=== PATIENT | male | born 1960 | race Caucasian/White ===

== ENCOUNTER 2016-09-05 22:30 | Emergency (ER) | payer MEDICAID ==
[~2016-09-05] VITALS: Ht 170.2 cm; Wt 91.9 kg
[~2016-09-05 22:30] MED LIST: B/P MED; HYDR25TA6 PO; LORA-446 PO; SERT100T PO
[2016-09-05 23:26] LABS: BLOOD UREA NITROGEN 8 mg/dL (7-18)
[2016-09-05 23:31] LABS: ACETAMINOPHEN < 2 mcg/mL (10-30)
[2016-09-06 00:06] LABS: DAU SCREEN DISCLAIMER
[2016-09-06] MEDS ORDERED: LORazepam 0.5MG TABLET ONE (04:10)
[2016-09-06 04:14] VITALS: BP 151/95
[2016-09-06] MEDS ORDERED: LORazepam 0.5MG TABLET PO ONE (04:30)
== END 2016-09-06 04:16 | disposition home or self-care (01) ==
LOC: ED 23:15
DX: F41.1 Generalized anxiety disorder (principal); F10.220 Alcohol dependence with intoxication, uncomplicated; F32.9 Major depressive disorder, single episode, unspecified; I10 Essential (primary) hypertension; E78.5 Hyperlipidemia, unspecified; Z72.9 Problem related to lifestyle, unspecified
CPT/HCPCS: 36415; 80048; 80307; 80329; 82040; 85025; 99284; G0480

== ENCOUNTER 2016-11-17 19:12 | Emergency (ER) | payer MEDICAID ==
[~2016-11-17] VITALS: Ht 170.2 cm; Wt 89.6 kg
[2016-11-17 19:18] VITALS: BP 180/81
[2016-11-17] MEDS ORDERED: SODIUM CHLORIDE 0.9% 1,000ML IVBOLUS ONE (20:00)
[2016-11-17] MEDS ORDERED: ONDANSETRON ODT 4 MG PO ONE (20:00)
[2016-11-17] MEDS ORDERED: SODIUM CHLORIDE FLUSH 10ML SYR IVF ONE (20:00)
[2016-11-17] MEDS ORDERED: THIAMINE 100MG TABLET PO ONE (20:00)
[2016-11-17] MEDS ORDERED: ONDANSETRON 2MG/ML, 2ML ONE (20:04)
[2016-11-17] MEDS ORDERED: LORazepam 2 MG/ML, 1ML ONE (20:04)
[2016-11-17 20:21] LABS: HEMATOCRIT 46.7 % (39.2-51.8); HEMOGLOBIN 16.3 g/dL (13.7-18.0); WHITE BLOOD COUNT 5.8 x10^3/uL (3.4-10)
[2016-11-17 20:29] LABS: ASPARTATE AMINO TRANSFERASE 45 U/L (15-37); BLOOD UREA NITROGEN 16 mg/dL (7-18)
[2016-11-17] MEDS: LORazepam 2 MG/ML, 1ML IVPush PRN ×2 (20:30→21:05)
[2016-11-17] MEDS ORDERED: THIAMINE 100MG TABLET ONE (21:02)
== END 2016-11-17 22:38 | disposition home or self-care (01) ==
LOC: ED 21:09
DX: F10.232 Alcohol dependence with withdrawal with perceptual disturbance (principal); E78.5 Hyperlipidemia, unspecified; F10.239 Alcohol dependence with withdrawal, unspecified; I10 Essential (primary) hypertension
CPT/HCPCS: 36415; 80053; 80307; 83690; 85025; 93005; 96361; 96374; 96376; 99285; J2060; J7030; Q0162; G0479

== ENCOUNTER 2018-06-19 16:24 | Emergency (ER) | payer MEDICAID ==
[~2018-06-19] VITALS: Ht 167.6 cm; Wt 95.9 kg
--- NOTE | 2018-06-19 16:35 | NUR ---
PT TO ROOM AT THIS TIME
--- NOTE | 2018-06-19 16:43 | NUR ---
58 Y/O MALE PRESENTS TO ED WITH C/O ANX/DEP. PER PT "I HAVE DEPRESSION AND ANXIETY. I HAVEN'T TAKEN MY MEDS IN 6 MONTHS. I DON'T HAVE A DR. RIGHT NOW. I'VE THOUGHT ABOUT HURTING MYSELF, NOT RIGHT NOW. I DON'T WANT TO HURT ANYONE ELSE. I HAVE A HEADACHE NOW." NO ACUTE DISTRESS NOTED. PT CALM.
[2018-06-19] MEDS ORDERED: LORazepam 1MG TABLET ONE (17:19)
[2018-06-19 17:20] VITALS: BP 134/70
--- NOTE | 2018-06-19 17:22 | NUR ---
PT RESTING ON GURNEY. NO ACUTE DISTRESS NOTED. VSS. NO NEEDS REQUESTED AT THIS TIME. MEDICATION ADMINISTERED PER EMAR.
[2018-06-19] MEDS ORDERED: LORazepam 1MG TABLET PO ONE (17:30)
--- NOTE | 2018-06-19 18:25 | NUR ---
Patient/Caregiver given discharge instructions and they have confirmed that they understand the instructions. Patient ambulatory with steady gait. PT LEFT WITH ALL PERSONAL BELONGINGS.
== END 2018-06-19 18:27 | disposition home or self-care (01) ==
LOC: ED 18:13
DX: F41.1 Generalized anxiety disorder (principal); I10 Essential (primary) hypertension; E78.5 Hyperlipidemia, unspecified
CPT/HCPCS: 99283

== ENCOUNTER 2020-01-12 15:19 | Emergency (ER) | payer MEDICAID, OTHER ==
[~2020-01-12] VITALS: Ht 167.6 cm; Wt 91.8 kg
[2020-01-12] MEDS ORDERED: ACETAMINOPHEN 500 MG TABLET PO ONE (15:30)
[2020-01-12] MEDS ORDERED: ACETAMINOPHEN 500 MG TABLET ONE (15:31)
--- NOTE | 2020-01-12 15:34 | NUR ---
medicated with 1gm of apap after clarification with provider as patient took 324 of asa at 1pm
[2020-01-12 16:10] LABS: BASOPHILS % (AUTO) 1 % (0-1); EOSINOPHILS % (AUTO) 0 % (1-7); LYMPHOCYTES % (AUTO) 25 % (22-44); MEAN CORPUSCULAR HEMOGLOBIN 31.7 pg (27.5-34.5); MEAN CORPUSCULAR HGB CONC 34.3 g/dL (33.2-36.2); MEAN PLATELET VOLUME 8.9 fL (7.4-10.4); MONOCYTES % (AUTO) 19 % (2-9); NEUTROPHILS % (AUTO) 56 % (42-75); PLATELET COUNT 189 x10^3/uL (130-400); RED BLOOD COUNT 4.98 x10^6/uL (4.38-5.82); RED CELL DISTRIBUTION WIDTH 12.6 % (9.4-14.8)
[2020-01-12 16:12] LABS: MD NO
[2020-01-12 16:23] LABS: ALANINE AMINOTRANSFERASE 37 U/L (12-78); ALBUMIN 4.2 g/dL (3.4-5.0); ANION GAP 7 mmol/L (5-15); CALCIUM 9.7 mg/dL (8.5-10.1); CHLORIDE 103 mmol/L (98-107); CREATININE 1.36 mg/dL (0.7-1.3)
[2020-01-12 16:25] LABS: ALKALINE PHOSPHATASE 74 U/L (45-117); BILIRUBIN,TOTAL 0.3 mg/dL (0.2-1.0); TOTAL PROTEIN 8.6 g/dL (6.4-8.2)
[2020-01-12 20:11] VITALS: BP 113/72
--- NOTE | 2020-01-12 20:17 | NUR ---
PT AMBULATORY TO ROOM AT 1999.
--- NOTE | 2020-01-12 20:29 | NUR ---
PT STATES HE HAS JOINT PAIN AND BODY ACHES THAT WERE RESOLVED WITH TYLENOL. PT STATES THIS PAIN "FEELS LIKE A COLD" HE'S HAD IN THE PAST. PT NO LONGER FEBRILE. VSS. RESPIRATIONS EVEN AND UNLABORED.
== END 2020-01-12 20:49 | disposition home or self-care (01) ==
LOC: ED 20:40
DX: U07.1 COVID-19 (principal); J06.9 Acute upper respiratory infection, unspecified; R07.9 Chest pain, unspecified; I10 Essential (primary) hypertension
CPT/HCPCS: 36415; 71045; 80053; 85025; 87635; 93005; 99285

== ENCOUNTER 2020-07-11 12:28 | Emergency (ER) | payer SELFPAY ==
[~2020-07-11] VITALS: Ht 170.2 cm; Wt 95.3 kg
--- NOTE | 2020-07-11 13:06 | NUR ---
Pt c/o RUQ abd discomfort, but denies pain. States it started approx 1 month ago. Pt states decrease in appetite x1 week, intermittent nausea. Deneis any changes in urine or BM. Pt connected to all monitors. NADN. Alla NP to bedside for eval. Pt provided with water for UA per ERP okay. Med rec done to best of pt's ability.
[2020-07-11 13:18] LABS: BASOPHILS % (AUTO) 1 % (0-1); EOSINOPHILS % (AUTO) 2 % (1-7); LYMPHOCYTES % (AUTO) 27 % (22-44); MEAN CORPUSCULAR HEMOGLOBIN 32.4 pg (27.5-34.5); MEAN PLATELET VOLUME 8.2 fL (7.4-10.4); MONOCYTES % (AUTO) 13 % (2-9); NEUTROPHILS % (AUTO) 57 % (42-75); PLATELET COUNT 233 x10^3/uL (130-400); RED BLOOD COUNT 5.15 x10^6/uL (4.38-5.82); RED CELL DISTRIBUTION WIDTH 13.2 % (9.4-14.8)
[2020-07-11 13:26] LABS: MD NO
[2020-07-11 13:30] LABS: ALANINE AMINOTRANSFERASE 46 U/L (12-78); ALBUMIN 4.2 g/dL (3.4-5.0); ANION GAP 5 mmol/L (5-15); CALCIUM 9.9 mg/dL (8.5-10.1); CHLORIDE 105 mmol/L (98-107)
[2020-07-11] MEDS ORDERED: SODIUM CHLORIDE FLUSH 10ML SYR IVF ONE (13:30)
[2020-07-11] MEDS ORDERED: SODIUM CHLORIDE 0.9% 1,000ML IVBOLUS ONE (13:30)
[2020-07-11 13:34] LABS: ALKALINE PHOSPHATASE 58 U/L (45-117); BILIRUBIN,TOTAL 0.4 mg/dL (0.2-1.0); TOTAL PROTEIN 8.4 g/dL (6.4-8.2); TROPONIN I < 0.015 ng/mL (0.000-0.045)
--- NOTE | 2020-07-11 13:40 | NUR ---
STARR RN: IV STARTED, FLUIDS RUNNING WELL. PT VERBALIZED NO ADDITIONAL NEEDS AT THIS TIME.
[2020-07-11 14:56] LABS: MICROSCOPIC NOT IND
[2020-07-11 15:56] VITALS: BP 140/74
== END 2020-07-11 15:59 | disposition home or self-care (01) ==
LOC: ED 15:46
DX: R53.1 Weakness (principal); I10 Essential (primary) hypertension; E78.5 Hyperlipidemia, unspecified
CPT/HCPCS: 36415; 80053; 81003; 84484; 85025; 93005; 96360; 99284; J7030